=== PATIENT | male | born 1965 | race Hispanic/Latino ===

== ENCOUNTER 2017-10-21 12:37 | Day surgery (SDC) | payer OTHER ==
[~2017-10-21 12:37] MED LIST: MEGARED OMEGA-31 CAP PO; VITAMIN C500 M6 PO
[2017-10-21 17:12] VITALS: BP 108/71
== END 2017-10-21 17:50 | disposition home or self-care (01) | DRG 951 ==
LOC: ENDO 12:37 → ORM 14:30 → ENDO 14:30
PROVIDERS: ATTEND Internal Medicine Gastroenterology
PROC: 0DJD8ZZ Inspection of Lower Intestinal Tract, Via Natural or Artificial Opening Endoscopic (ICD-10-PCS; principal; 2017-10-21)
DX: Z12.11 Encounter for screening for malignant neoplasm of colon (principal); K64.4 Residual hemorrhoidal skin tags; K64.8 Other hemorrhoids; K25.9 Gastric ulcer, unspecified as acute or chronic, without hemorrhage or perforation; R13.10 Dysphagia, unspecified